=== PATIENT | male | born 1965 | race Caucasian/White ===

== ENCOUNTER 2021-08-28 14:25 | Emergency (ER) | payer BC, OTHER ==
[~2021-08-28] VITALS: Ht 177.8 cm; Wt 86.2 kg
--- NOTE | 2021-08-28 14:31 | NUR ---
TO ER BED 4, C/O LEFT INGUINAL PAIN SINCE 0500,H/O KIDNEY STONE,LAST TIME HE WAS ABLE TO URINATE AT 5AM, AAOX3, BREATHING EVEN AND NON LABORED, CONNECTED TO MONITOR
[2021-08-28] MEDS ORDERED: ONDANSETRON HCL/PF 4 MG/2 ML VIAL ONE (15:09)
[2021-08-28] MEDS ORDERED: MORPHINE SULFATE INJ 4 MG/ML DISP.SYRIN ONE (15:10)
[2021-08-28] MEDS ORDERED: KETOROLAC TROMETHAMINE INJ 30 MG/ML VIAL ONE (15:10)
[2021-08-28] MEDS ORDERED: ONDANSETRON HCL/PF 4 MG/2 ML VIAL IVP ONE (15:30)
[2021-08-28] MEDS ORDERED: KETOROLAC TROMETHAMINE INJ 30 MG/ML VIAL IV ONE (15:30)
[2021-08-28] MEDS ORDERED: MORPHINE SULFATE INJ 2 MG/ML DISP.SYRIN IV ONE (15:30)
[2021-08-28] MEDS ORDERED: IV NS 0.9% 1,000 ML BAG IV ONE (15:30)
--- NOTE | 2021-08-28 15:30 | NUR ---
R HAND #20G S/L; PATENT AND INTACT. BLOOD COLLECTED AND SENT TO LAB. IVF NS 1000ML INFUSING
--- NOTE | 2021-08-28 15:38 | NUR ---
PVR = 82ML. KEVYN FLOREZ AWARE. URINE SAMPLE CONTAMINATED. WILL COLLECT SAMPLE AGAIN.
[2021-08-28 15:39] LABS: BASOPHILS # (AUTO) 0.1 K/uL (0.0-0.2); BASOPHILS % (AUTO) 0.6 % (0.0-2.0); EOSINOPHILS % (AUTO) 1.4 % (0.0-6.0); HEMATOCRIT 45 % (39-51); HEMOGLOBIN 15.1 g/dL (13.5-17.5); LYMPHOCYTES # (AUTO) 1.2 K/uL (0.8-4.8); LYMPHOCYTES % (AUTO) 12.9 % (20.0-44.0); MEAN CORPUSCULAR HGB CONC 33 g/dl (31.0-36.0); MEAN CORPUSCULAR VOLUME 90 fL (80-96); MONOCYTES # (AUTO) 0.8 K/uL (0.1-1.30); MONOCYTES % (AUTO) 8.7 % (2.0-12.0); NEUTROPHILS # (AUTO) 7.1 K/uL (1.8-8.9); NEUTROPHILS % (AUTO) 76.4 % (43.0-81.0); PLATELET COUNT (AUTO) 179 K/uL (150-450); RED BLOOD CELL COUNT(AUTO) 5.04 MIL/uL (4.5-6.0); WHITE BLOOD COUNT (AUTO) 9.3 K/uL (4.3-11.0)
--- NOTE | 2021-08-28 15:50 | NUR ---
TAKEN TO CT
--- NOTE | 2021-08-28 16:00 | NUR ---
PT RETURNED TO ER BED [address]
--- NOTE | 2021-08-28 16:07 | NUR ---
URINE COLLECTED AND SENT TO LAB
[2021-08-28 16:12] LABS: ALBUMIN 4.2 g/dL (3.4-5.0); BILIRUBIN,DIRECT 0.1 mg/dL (0.0-0.2); CALCIUM, SERUM 9.2 mg/dL (8.5-10.1); CREATININE 1.1 mg/dL (0.6-1.3); POTASSIUM 4.3 mmol/L (3.5-5.1); TOTAL PROTEIN, SERUM 7.2 g/dL (6.4-8.2)
[2021-08-28] MEDS ORDERED: TAMSULOSIN 0.4 MG CAP.SR.24H PO ONE (16:30)
[2021-08-28] MEDS ORDERED: TAMSULOSIN 0.4 MG CAP.SR.24H ONE (16:47)
[2021-08-28 17:11] LABS: BILIRUBIN,URINE NEGATIVE (NEGATIVE); COLOR,URINE YELLOW (YELLOW); LEUKOCYTE ESTERASE ,URINE NEGATIVE (NEGATIVE); NITRITE, URINE NEGATIVE (NEGATIVE); PROTEIN,URINE NEGATIVE (NEGATIVE); UGLUCOSE NEGATIVE (NEGATIVE); UROBILINOGEN,URINE 0.2 EU/dL (0.2)
[2021-08-28 17:38] LABS: BACTERIA,URINE Few /HPF (None Seen); RBC,URINE 21-50 /HPF (0-2); SQUAMOUS EPITHELIAL CELL,UR Few /HPF (None Seen); WBC,URINE 0-2 /HPF (0-3)
[2021-08-28] MEDS ORDERED: IBUP-1957 PO (17:48)
[2021-08-28] MEDS ORDERED: TAMS-12 PO (17:48)
[2021-08-28] MEDS ORDERED: HYDR-3972 PO (17:48)
--- NOTE | 2021-08-28 18:19 | NUR ---
IV removed. Catheter intact and site benign. Pressure and 4x4 applied to site. No bleeding noted.Patient discharged to home in stable condition. Written and verbal after care instructions given. Patient verbalizes understanding of instruction.
[2021-08-28 18:20] VITALS: BP 136/82
== END 2021-08-28 18:21 | disposition home or self-care (01) ==
LOC: ER 14:31
DX: N20.0 Calculus of kidney (principal); N20.1 Calculus of ureter; Z88.0 Allergy status to penicillin
CPT/HCPCS: 36415; 74176; 80048; 80076; 81001; 83690; 85025; 96361; 96374; 96375; 99284; J1885; J2270; J2405; J7030